=== PATIENT | female | born 1950 | race Two or more races ===

== ENCOUNTER 2020-08-27 13:27 | Inpatient (IN) | payer OTHER ==
[~2020-08-27] VITALS: Ht 162.6 cm; Wt 73.3 kg
[2020-08-27] MEDS ORDERED: cloNIDine HCL 0.1 MG TAB PO ONE (14:15)
[2020-08-27 14:30] LABS: Basophils # (auto) 0.1 10 ^3/uL (0-0.2); Basophils % (auto) 0.6 % (0.0-2.0); Eosinophils # (auto) 0 10 ^3/uL (0-0.8); Eosinophils % (auto) 0.2 % (0.0-7.0); Hematocrit 38.1 % (36.0-46.0); Hemoglobin 13.4 g/dL (12.2-16.2); Lymphocytes # (auto) 1.3 10 ^3/uL (0.4-5.4); Lymphocytes % (auto) 16.2 % (10.0-50.0); Mean Corpuscular Hemoglobin 29.2 pg (28.0-32.0); Mean Corpuscular Hgb Conc. 35.1 g/dL (32.0-36.0); Mean Corpuscular Volume 83.3 fL (80.0-100.0); Monocytes # (auto) 0.5 10 ^3/uL (0-1.3); Monocytes % (auto) 6.7 % (0.0-12.0); Neutrophils # (auto) 6.2 10 ^3/uL (1.6-8.6); Neutrophils % (auto) 76.3 % (37.0-80.0); Nucleated Red Blood Cells % 0.1 %; Platelet Count (auto) 251 10^3/uL (140-450); Red Blood Cells 4.57 10^6/uL (4.0-5.20); Red Cell Distribution Width 14.5 % (11.8-14.3); White Blood Cell 8.2 10^3/uL (4.4-10.8)
[2020-08-27 14:48] LABS: Albumin 4.5 g/dL (3.4-5.0); BUN/Creatinine Ratio 25.2; Calcium 10.4 mg/dL (8.5-10.1); Magnesium 1.8 mg/dL (1.6-2.6); Potassium 4.2 mmol/L (3.5-5.1)
[2020-08-27 14:53] LABS: Bilirubin, Total 1.4 mg/dL (0.2-1.0); Total Protein 8.3 g/dL (6.4-8.2)
[2020-08-27] MEDS ORDERED: ONDANSETRON HCL 4 MG/2 ML VIAL IV ONE (15:45)
[2020-08-27] MEDS ORDERED: MORPHINE SULFATE 4 MG/ML SYR/VIAL IV ONE (15:45)
[2020-08-27] MEDS ORDERED: HYDROmorphone HCL 2 MG/ML VL IV ONE (16:00)
[2020-08-27] MEDS ORDERED: NITROGLYCERIN 0.4 MG SL TAB SL PRN (16:15)
[2020-08-27] MEDS ORDERED: HYDROmorphone HCL 2 MG/ML VL IV PRN (17:00)
[2020-08-27] MEDS ORDERED: LABETALOL HCL 5 MG/ML 4ML SYRINGE IV PRN ×2 (17:00)
[2020-08-27] MEDS ORDERED: DEXTROSE (50%) 50ML SYRG IV PRN (17:00)
[2020-08-27] MEDS ORDERED: traMADol HCL 50 MG TAB PO PRN (17:00)
[2020-08-27 17:22] LABS: Urine Bacteria MOD /hpf (None Seen); Urine Blood Negative /uL (Negative); Urine Specific Gravity 1.004 (1.001-1.035); Urine WBC 35 /hpf (0 - 5)
[2020-08-27 17:48] LABS: Cholesterol 291 mg/dL (< 200)
[2020-08-27 17:49] LABS: HDL Cholesterol 88 mg/dL (40-59); LDL Cholesterol 167 mg/dL (< 100); Triglycerides 151 mg/dL (< 150)
[2020-08-27] MEDS: InsuLIN REG 1unit/0.01ml Soln (100units/ml) SC SCH ×2 (17:58→21:23)
[2020-08-27] MEDS: ONDANSETRON HCL 4 MG/2 ML VIAL IV PRN ×2 (17:59→20:31)
[2020-08-27] MEDS: ACCU-CHEK COMFORT CURVE STRIP VI SCH ×2 (17:59→21:23)
[2020-08-27] MEDS ORDERED: ENOXAPARIN SOD 80 MG/0.8ML SYRINGE SC ONE (18:00)
[2020-08-27] MEDS ORDERED: cefTRIAXone 1GM/50ML D5W 50 ML IV ONE (18:15)
[2020-08-27] MEDS ORDERED: cloNIDine HCL 0.1 MG TAB PO PRN (18:30)
[2020-08-27] MEDS ORDERED: ATORVASTATIN 20 MG TAB PO SCH (22:00)
[2020-08-27 22:09] VITALS: BP 154/66
[2020-08-27 23:00] VITALS: BP 136/70
[2020-08-27] MEDS: LOSARTAN POTASSIUM 50 MG TAB PO SCH (23:34)
[2020-08-28] MEDS ORDERED: LOSA-39 PO (00:38)
[2020-08-28] MEDS ORDERED: ASPI-543 PO (00:38)
[2020-08-28] MEDS ORDERED: AML5T PO (00:38)
[2020-08-28] MEDS ORDERED: METF-370 PO (00:38)
[2020-08-28] MEDS ORDERED: PNEUMOCOCCAL VACC POLYS 25 MCG/0.5 ML VIAL IM ONE (01:00)
[2020-08-28] MEDS: ONDANSETRON HCL 4 MG/2 ML VIAL IV PRN (03:02)
[2020-08-28 05:00] VITALS: BP 139/70
[2020-08-28] MEDS: InsuLIN REG 1unit/0.01ml Soln (100units/ml) SC SCH ×2 (06:36→11:30)
[2020-08-28] MEDS: ACCU-CHEK COMFORT CURVE STRIP VI SCH ×2 (06:36→13:29)
[2020-08-28 08:34] VITALS: BP 161/85
[2020-08-28] MEDS ORDERED: cefTRIAXone 1GM/50ML D5W 50 ML IV SCH (09:00)
[2020-08-28] MEDS: LOSARTAN POTASSIUM 50 MG TAB PO SCH (09:13)
[2020-08-28] MEDS ORDERED: ENOXAPARIN SOD 40 MG/0.4 ML SYRINGE SC SCH (10:00)
[2020-08-28] MEDS ORDERED: amLODIPine BESYLATE 5 MG TAB PO SCH (10:00)
[2020-08-28] MEDS ORDERED: FAMOTIDINE 20 MG TAB PO SCH (10:00)
[2020-08-28 13:00] VITALS: BP 155/68
[2020-08-28] MEDS ORDERED: CLON0.1T PO (13:57)
[2020-08-28] MEDS ORDERED: CIPR-173 PO (13:57)
[2020-08-28] MEDS ORDERED: ALPRAZolam 0.25 MG TAB PO ONE (14:00)
[2020-08-28] MEDS ORDERED: CARVEDILOL 3.125 MG TAB PO ONE (15:45)
[2020-08-28 17:00] VITALS: BP 135/71
[2020-08-28] MEDS ORDERED: CARVEDILOL 3.125 MG TAB PO SCH (22:00)
[2020-08-29] MEDS ORDERED: amLODIPine BESYLATE 5 MG TAB PO SCH (10:00)
== END 2020-08-28 18:00 | disposition home or self-care (01) | DRG 305 ==
LOC: EDBD 13:27 → ER 13:27 → TELE 18:16 → TELE-CENTR 22:10
PROVIDERS: ADMIT Internal Medicine; ATTEND Hospitalist
DX: I16.0 Hypertensive urgency (principal); N39.0 Urinary tract infection, site not specified; E87.1 Hypo-osmolality and hyponatremia; E11.65 Type 2 diabetes mellitus with hyperglycemia; E83.52 Hypercalcemia; E66.9 Obesity, unspecified; Z68.27 Body mass index [BMI] 27.0-27.9, adult; E07.9 Disorder of thyroid, unspecified; E78.5 Hyperlipidemia, unspecified; Z20.822 Contact with and (suspected) exposure to COVID-19; R10.13 Epigastric pain; F41.9 Anxiety disorder, unspecified; I10 Essential (primary) hypertension; R32 Unspecified urinary incontinence; Z79.4 Long term (current) use of insulin; Z80.9 Family history of malignant neoplasm, unspecified; Z85.3 Personal history of malignant neoplasm of breast; Z86.73 Personal history of transient ischemic attack (TIA), and cerebral infarction without residual deficits; Z90.11 Acquired absence of right breast and nipple; Z90.49 Acquired absence of other specified parts of digestive tract; Z91.14 Patient's other noncompliance with medication regimen; Z88.5 Allergy status to narcotic agent
CPT/HCPCS: 36415; 70450; 71045; 80053; 80061; 81001; 82962; 83036; 83690; 83735; 83880; 84443; 84484; 85025; 85379; 87086; 87088; 87186; 87426; 93005; 93306; 93971; 96365; 96372; 96375; G0378; J0696; J2405; J3490